=== PATIENT | male | born 1980 | race Caucasian/White ===

== ENCOUNTER 2021-08-06 08:01 | Day surgery (SDC) | payer MEDICAID ==
[~2021-08-06] VITALS: Ht 165.1 cm; Wt 57.3 kg
[2021-08-06 08:31] LABS: COVID AG,FIA SOURCE NASOPHARYNGEAL
[2021-08-06] MEDS ORDERED: SODIUM CHLORIDE 0.9% 1,000 ML ONE (08:45)
[2021-08-06] MEDS ORDERED: SODIUM CHLORIDE 0.9% 1,000 ML IV ONE (09:00)
[2021-08-06] MEDS ORDERED: PROPOFOL 1% 20 ML VIAL IVP ONE (12:00)
== END 2021-08-06 12:30 | disposition home or self-care (01) ==
LOC: SURGERY 08:01
PROVIDERS: ATTEND Student in an Organized Health Care Education/Training Program
DX: Z12.11 Encounter for screening for malignant neoplasm of colon (principal); D12.2 Benign neoplasm of ascending colon; K57.30 Diverticulosis of large intestine without perforation or abscess without bleeding; K64.8 Other hemorrhoids; K64.4 Residual hemorrhoidal skin tags; Z80.0 Family history of malignant neoplasm of digestive organs; Z88.0 Allergy status to penicillin; F17.210 Nicotine dependence, cigarettes, uncomplicated; Z79.899 Other long term (current) drug therapy; Z72.89 Other problems related to lifestyle; Z98.890 Other specified postprocedural states
CPT/HCPCS: 45380; 87426; 88305; C1769; C9803; J2704; J7030